=== PATIENT | male | born 1960 | race Caucasian/White ===

== ENCOUNTER 2016-10-24 11:44 | Emergency (ER) | payer SELFPAY ==
[2016-10-24 11:55] VITALS: BP 157/101
== END 2016-10-24 13:40 | disposition home or self-care (01) ==
LOC: ED 11:44
DX: S61.213D Laceration without foreign body of left middle finger without damage to nail, subsequent encounter (principal); X58.XXXD Exposure to other specified factors, subsequent encounter; Y99.8 Other external cause status; Y92.89 Other specified places as the place of occurrence of the external cause
CPT/HCPCS: J0696